=== PATIENT | female | born 1980 | race Caucasian/White ===

== ENCOUNTER 2021-10-23 09:24 | Outpatient (REF) | payer OTHER, SELFPAY ==
[2021-10-23 11:52] LABS: Hematocrit 45.6 % (37.0-47.0); Hemoglobin 15.2 g/dl (12.0-16.0); Mean Corpuscular HGB Conc 33.3 g/dl (31.0-35.0); Mean Corpuscular Hemoglobin 32.8 pg (27.0-33.0); Mean Corpuscular Volume 98.3 fL (80.0-98.0); Mean Platelet Volume 10.5 fL (9.4-12.3); Platelet Count 217 X10*3/uL (160-400); Red Blood Count 4.64 X10*6/uL (4.20-5.50); Red Cell Distribution Width 12.6 % (11.0-16.0)
[2021-10-23 12:24] LABS: Alanine Aminotransferase 45 U/L (0-31); Albumin Level 4.1 g/dL (3.5-5.0); Alkaline Phosphatase 64 U/L (39-117); Anion Gap 12 (12-20); Aspartate Amino Transferase 22 U/L (5-31); Bilirubin Total 0.5 mg/dL (0.0-1.0); Blood Urea Nitrogen 17 mg/dL (9-16); Calcium 9.2 mg/dL (8.4-10.2); Carbon Dioxide 23 mmol/L (22-29); Chloride 107 mmol/L (96-108); Cholesterol 200 mg/dL; Estimated Glomerular Filt Rate > 60; Glucose Fasting 81 mg/dL (60-99); HDL Cholesterol 67 mg/dL; LDL Cholesterol Calculated 111 mg/dl; Potassium 4.1 mmol/L (3.3-5.1); Rheumatoid Factor < 15.0 IU/mL (<15.0); Sodium 138 mmol/L (135-145); Total Protein 6.9 g/dL (6.5-8.0); Triglycerides 112 mg/dL
[2021-10-23 12:25] LABS: TSH reflex Free T4 2.05 uIU/mL (0.32-4.0)
[2021-10-26 11:42] LABS: Anti Nuclear Antibody Screen NEGATIVE (NEGATIVE)
[2021-10-26 15:55] LABS: Cyclic Citrullinated Peptide <16 UNITS
== END 2021-10-23 09:25 | disposition home or self-care (01) ==
LOC: HO.HMGCLDS 09:24
PROVIDERS: PCP Internal Medicine; Visit Provider Internal Medicine
DX: Z00.00 Encounter for general adult medical examination without abnormal findings (principal)
CPT/HCPCS: 36415; 80053; 80061; 84443; 85027; 86038; 86039; 86200; 86431

== ENCOUNTER 2021-11-03 14:35 | Outpatient (REF) | payer OTHER, SELFPAY | END 2021-11-03 14:36 | disposition home or self-care (01) | LOC: HO.LAB 14:35 | PROVIDERS: PCP Internal Medicine; Visit Provider Internal Medicine | DX: Z20.822 Contact with and (suspected) exposure to COVID-19 (principal) | CPT/HCPCS: C9803; U0003; U0005 ==

== ENCOUNTER 2023-03-28 08:52 | Outpatient (REF) | payer OTHER, SELFPAY ==
[2023-03-28 11:22] LABS: MANUAL DIFF FLAG NO
[2023-03-28 11:36] LABS: Basophils Percent Auto 0.6 % (0-2); Eosinophils Absolute Auto 0.1 X10*3/uL (0.0-0.4); Eosinophils Percent Auto 0.9 % (0-4); Hematocrit 43.7 % (37.0-47.0); Hemoglobin 14.7 g/dl (12.0-16.0); Imm Gran Abs Auto 0.02 X10*3/uL (0.00-0.03); Imm Gran Pct Auto 0.4 % (0.0-0.4); Lymphocytes Absolute Auto 1.2 X10*3/uL (1.2-4.9); Lymphocytes Percent Auto 23.3 % (20-40); Mean Corpuscular HGB Conc 33.6 g/dl (31.0-35.0); Mean Corpuscular Hemoglobin 32.7 pg (27.0-33.0); Mean Corpuscular Volume 97.1 fL (80.0-98.0); Mean Platelet Volume 10.6 fL (9.4-12.3); Monocytes Absolute Auto 0.4 X10*3/uL (0.1-1.2); Monocytes Percent Auto 8.3 % (2-11); Neutrophils Absolute Auto 3.5 x10*3/uL (2.0-8.3); Neutrophils Percent Auto 66.5 % (45-73); Platelet Count 200 X10*3/uL (160-400); Red Cell Distribution Width 12.7 % (11.0-16.0); White Blood Count 5.3 X10*3/uL (4.8-10.8)
[2023-03-28 11:54] LABS: Alanine Aminotransferase 33 U/L (0-31); Alkaline Phosphatase 63 U/L (39-117); Anion Gap 11 (12-20); Aspartate Amino Transferase 28 U/L (5-31); Bilirubin Total 0.6 mg/dL (0.0-1.0); Blood Urea Nitrogen 15 mg/dL (9-16); Calcium 8.7 mg/dL (8.4-10.2); Carbon Dioxide 24 mmol/L (22-29); Chloride 106 mmol/L (96-108); Cholesterol 184 mg/dL; Estimated Glomerular Filt Rate > 60; Glucose Fasting 83 mg/dL (60-99); HDL Cholesterol 65 mg/dL; LDL Cholesterol Calculated 106 mg/dl; Potassium 4.3 mmol/L (3.3-5.1); Sodium 137 mmol/L (135-145); Total Protein 6.7 g/dL (6.5-8.0); Triglycerides 67 mg/dL
[2023-03-28 12:14] LABS: TSH reflex Free T4 0.55 uIU/mL (0.32-4.0)
[2023-03-31 00:34] LABS: TS Negative Control Passed; TS Panel A 3; TS Panel B 0; TS Positive Control Passed; TSpotTB Negative (Negative)
== END 2023-03-28 08:53 | disposition home or self-care (01) ==
LOC: HO.HMGCLDS 08:52
PROVIDERS: PCP Internal Medicine; Visit Provider Internal Medicine
DX: Z00.00 Encounter for general adult medical examination without abnormal findings (principal); Z11.1 Encounter for screening for respiratory tuberculosis
CPT/HCPCS: 36415; 80053; 80061; 84443; 85025; 86481

== ENCOUNTER 2023-09-14 11:56 | Emergency (ER) | payer OTHER, SELFPAY ==
--- NOTE | ~2023-09-14 | XR_ITS ---
EXAMINATION: XR ANKLE, LEFT CLINICAL INFORMATION: Fall COMPARISON: None available. TECHNIQUE: AP, lateral, and mortise views of the left ankle. FINDINGS: Fractures of the distal fibula. One is occurring approximately 2 cm above the plafond and also another oblique fracture occurring 9 mm above the plafond. Some distraction of the fracture fragments. There is some widening of the medial mortise. Minimal bony irregularity in the lateral image involving the posterior tibia. Fracture cannot be excluded here. Soft tissue swelling seen laterally. XR/XR ankle LT min 3V IMPRESSION: Multiple Fractures of the distal tibia as described. There is widening the medial mortise here. Also some mild irregularity in the posterior aspect of the tibia the tibiotalar articulation could indicate fracture here.
[2023-09-14 12:06] VITALS: BP 160/103; PULSE 96; RESP 18; TEMP 36.8; O2SAT 97; BMI 33.3
--- NOTE | 2023-09-14 12:06 | ED.LOWEXIN ---
HPI - Extremity Injury (Lower) General Chief Complaint: Extremity Injury, Lower Stated Complaint: L ankle injury Time Seen by Provider: 09/14/23 16:43 Source: patient Mode of arrival: ambulatory Limitations: no limitations History of Present Illness HPI Narrative: 42-year-old female presents with complaints of left ankle pain status post rolling her ankle when she slipped on mud yesterday night, patient reports she fell afterwards however did not hit her head or lose consciousness. Did not sustain any other injuries, she states she is just experiencing pain, swelling and bruising to left ankle, cannot bear weight on it. Denies numbness and tingling, fevers, chills, headache, vision changes, chest pain, shortness of breath, nausea, vomiting and abdominal pain. Not on thinneres Related Data Previous Rx's Medication Instructions Recorded nicotine 21 mg/24 hr daily 1 patch transdermal DAILY #28 ea 07/28/21 transdermal patch trazodone 50 mg tablet 50 mg PO BEDTIME #30 tabs 06/16/23 ketorolac 10 mg tablet 10 mg PO TID PRN pain 5 days #15 09/14/23 tabs morphine 15 mg immediate release 15 mg PO Q6H PRN pain 5 days #10 09/14/23 tablet tabs Allergies Allergy/AdvReac Type Severity Reaction Status Date / Time No Known Allergies Allergy Verified 09/14/23 12:06 Review of Systems Review of Systems: Constitutional : No Weight loss, No Fever, No Chills, No Fatigue, No Malaise ENT/Mouth : No sore throat, No Rhinorrhea Eyes: No Eye Pain, No Swelling, No Redness Cardiovascular : No Chest Pain, No SOB, No Dyspnea on Exertion, No Orthopnea, No Edema, No Palpitations Respiratory : No Cough, No Sputum, No Wheezing Gastrointestinal : No Nausea, No Vomiting, No Diarrhea, No Constipation, No abdominal Pain, No Hematochezia, No Melena Genitourinary : No Dysuria, No Urinary Frequency, No Hematuria, Musculoskeletal : No joint pain, No Myalgias, No Joint Swelling Skin : No Skin Lesions, No rash Neuro : No Weakness, No Numbness, No Dizziness, No Headache Psych : No Anxiety/Panic, No Depression All other systems reviewed and are negative Yes all other systems are reviewed and are negative PMFSH Past Medical History Attestation statement: The following information was validated with the patient. Source: old records reviewed and nursing notes reviewed Medical History Annual physical exam Normal Pap smear Surgical History H/O bilateral breast reduction surgery Family History Family History Father Hypertension Diabetes Mental health disorder Substance use disorder Mother Hypertension Mental health disorder Maternal Grandmother Breast cancer Paternal Grandmother Colon cancer Social History Social History (Updated 03/21/23 @ 11:12 by Agustina Hansen MD) Household Members Other:: 1/2 PPD, 15 yr disable, daughter, 19 yr son Housing: Apartment Unable to assess alcohol history related to: Unable to respond Alcohol intake: unknown Patient Tobacco Use Status: Current everyday Tobacco user Tobacco use type: Cigarette Cigarettes Per Day: 10 Smoked in Last 30 Days: No e-Cigarette/Vaping Use: Never Used Use of substances other than those prescribed or required for medical reasons: Unknown Advance Directives: No Advance Directives Information Provided: No Patient : No Current occupational status: unemployed Cognitive needs: No Hearing needs: No Vision needs: Yes Physical Exam Vital Signs: Vital Signs: Last Vital Signs Temp 98.8 F 09/14/23 16:42 Pulse 88 09/14/23 16:42 Resp 18 09/14/23 16:42 BP 137/85 09/14/23 16:42 Pulse Ox 97 09/14/23 12:06 O2 Del Method Room Air 09/14/23 16:42 BMI result Body Mass Index 33.3 vss Appearance: Alert.? Oriented X3.? No acute distress.? Head: Normocephalic, atraumatic, no step-offs or deformities Eyes: Pupils equal, round and reactive to light.? ENT: Pharynx normal.? Neck: Normal inspection.? Neck supple.? CVS: Normal heart rate and rhythm.? Pulses normal.? Respiratory: No respiratory distress.? Breath sounds normal.? Abdomen: Soft and nontender.? Skin: Skin warm and dry.? Normal skin color.? Normal skin turgor.? Extremities: No lower extremity edema.? No calf ttp. 5/5 strength to bilateral upper and lower extremities + unable to assess range of motion to left ankle secondary to significant pain, there is edema and ecchymosis overlying the left ankle to the medial lateral aspect, tenderness to palpation to medial, lateral malleolus into the anterior ankle, normal sensation distally able to wiggle her toes, 2+ dorsalis pedis, anterior tibialis and posterior tibialis pulses equal bilateral. Back: No midline tenderness, no C-spine tenderness, full range of motion, no CVA tenderness bilaterally Neuro: Oriented X 3.? No motor deficit.? No sensory deficit. CN 2-12 intact Course Course Course Narrative: RME - 42 yo female presents to the ER for evaluation of left ankle pain, bruising and swelling after she slipped on mud last night and fell. Unable to bear weight today. Plan: x-ray ankle Reevaluation(s) Reevaluation #1: X-ray showing multiple fractures of the distal fibula although impression states to be I did speak to [facility] to correct this. There is widening of the medial mortise, will place patient in a posterior short and a stirrup will give crutches and tell her not to bear weight on this extremity will have her follow-up with the orthopedic team as soon as possible with discharge home with Toradol, morphine. After application of splint intact neurovascular status, capillary refill less than 2 seconds to all lower extremity digits. Educated patient on diagnosis and treatment plan, answered all question, patient verbalizes understanding. At this time patient will be discharged home, advised to return with new or worsening symptoms. Educated on worrisome signs and symptoms and when to return. At this time I feel comfortable discharge home. Time: 17:16 Medications Administered Discontinued Medications Generic Name Dose Route Start Last Admin Trade Name Marybeth PRN Reason Stop Dose Admin Ketorolac Tromethamine 30 mg 09/14/23 16:44 09/14/23 16:54 Ketorolac Tromethamine 30 Mg/Ml Vial IM 09/14/23 16:45 30 mg ONCE ONE Administration Morphine Sulfate 15 mg 09/14/23 16:44 09/14/23 16:54 Morphine Sulfate Immed Release 15 Mg Tablet PO 09/14/23 16:45 15 mg ONCE ONE Administration Medical Decision Making Medical Decision Making [facility] Narrative: 42-year-old female presents with left ankle pain status post slipping in mud Physical exam significant for unable to assess range of motion to left ankle secondary to significant pain, there is edema and ecchymosis overlying the left ankle to the medial lateral aspect, tenderness to palpation to medial, lateral malleolus into the anterior ankle, normal sensation distally able to wiggle her toes, 2+ dorsalis pedis, anterior tibialis and posterior tibialis pulses equal bilateral. Concerns for fracture, dislocation with possible ligament or tendon injury. Unlikely sprain or strain, unlikely neurovascular compromise or threat to Jason, no signs of compartment syndrome. No signs of traumatic injury to head, neck, chest, abdomen or pelvis. No signs of arterial or venous occlusion. Plan imaging and pain control Differential Diagnosis Differential Diagnoses: The differential diagnosis associated with the presentation includes Concerns for fracture, dislocation with possible ligament or tendon injury. Unlikely sprain or strain, unlikely neurovascular compromise or threat to Jason, no signs of compartment syndrome. No signs of traumatic injury to head, neck, chest, abdomen or pelvis. No signs of arterial or venous occlusion. Admission/Observation Consideration of admission/observation: Escalation of care including admission/observation considered Independent Interpretation I performed an independent interpretation of an: Plain X-Ray ( XR/XR ankle LT min 3V IMPRESSION: Multiple Fractures of the distal tibia as described. There is widening the medial mortise here. Also some mild irregularity in the posterior aspect of the tibia the tibiotalar articulation could indicate fracture here.) Radiology Impression Discussion of test interpretation with radiology: I have reviewed the radiologist's reading. Prescription Management I considered prescription management with: Pain Medication (Narcotic, safe narcotic use was reviewed with patient will also send Toradol) Discharge Plan Discharge Clinical Impression: Ankle fracture Patient Disposition: Home, Self-Care Instructions: Ankle Fracture (ED) Additional Instructions: Take your medications as prescribed. If you were prescribed antibiotics today, it is important that you take your medication to their entirety, do not skip any doses, do not finish them early. Follow-up with your primary care provider this week. Return to the emergency department with new or worsening symptoms. Such as fevers, chills, chest pain, shortness of breath, nausea, vomiting, dizziness, headache, vision changes, lethargy In case of emergency call 911 Toradol has been sent to your pharmacy, you tolerated this well in the department. Please take this as prescribed do not take this with ibuprofen, or other NSAIDs, do not mix this with alcohol. Side effects of this medication including increased risk for bleeding and possible kidney injury. A narcotic has been sent to your pharmacy please take this as prescribed. Do not take more than the prescribed dose. Narcotic medications can cause addiction. Please do not mix them with alcohol. Do not take them while driving or operating machinery. Do not take them with any other narcotics. Do not share them with friends or family. They can cause constipation. Take them only for severe pain. XR/XR ankle LT min 3V IMPRESSION: Multiple Fractures of the distal fibula as described. There is widening the medial mortise here. Also some mild irregularity in the posterior aspect of the tibia the tibiotalar articulation could indicate fracture here. Feel better Prescriptions: New ketorolac 10 mg tablet 10 mg PO TID PRN (Reason: pain) 5 Days Qty: 15 0RF morphine 15 mg tablet 15 mg PO Q6H PRN (Reason: pain) 5 Days Qty: 10 0RF Rx Instructions: Partial Fill upon patient request. No Action trazodone 50 mg tablet 50 mg PO BEDTIME Qty: 30 2RF nicotine 21 mg/24 hr patch 24 hour 1 patch transdermal DAILY Qty: 28 6RF Referrals: Agustina Hansen MD [Primary Care Provider] - 2 days [facility] [Provider Group] - 2 days Stand Alone Forms: Work/School Release
[2023-09-14 16:42] VITALS: BP 137/85; PULSE 88; RESP 18; TEMP 37.1
[2023-09-14] MEDS: Ketorolac Tromethamine 30 MG/ML VIAL IM (16:54)
[2023-09-14] MEDS: Morphine Sulfate Immed Release 15 MG TABLET PO (16:54)
--- NOTE | 2023-09-14 17:17 | MHC.EDTECH ---
Splint apply to Patient left leg ,Provider Ollie check splint application ,Crutches given .
== END 2023-09-14 17:45 | disposition home or self-care (01) ==
PROVIDERS: Emergency Provider Student in an Organized Health Care Education/Training Program; PCP Internal Medicine
DX: S82.892A Other fracture of left lower leg, initial encounter for closed fracture (principal); W01.0XXA Fall on same level from slipping, tripping and stumbling without subsequent striking against object, initial encounter; F17.210 Nicotine dependence, cigarettes, uncomplicated; Y93.9 Activity, unspecified; Y92.89 Other specified places as the place of occurrence of the external cause; Y99.9 Unspecified external cause status
CPT/HCPCS: 29515; 73610; 96372; 99284; J1885

== ENCOUNTER 2023-09-20 11:10 | Outpatient (AMB) | payer OTHER, SELFPAY ==
--- NOTE | 2023-09-20 11:20 | MHC.OFFVIS ---
Intake Vital Signs 09/20/23 11:22 Height 5 ft 5 in Weight 200 lb BMI 33.3 Intake Visit Reasons: Fc- left Ankle fracture Intake Note: Winter is a 42 year old female who presets today in a splint for a evaluation for her left ankle fx, DOI 09/13/23. Patient reports she slipped on mud and she fell. She states that she is in a lot of pain with spasms that cause her a lot of discomfort. Having numbness under the toes and near the ankle with a burning sensation as well. Allergies No Known Allergies Allergy (Verified 09/20/23 11:22) HPI Fc- left Ankle fracture HPI Details 42-year-old female who presents in the office today, as a new patient, for an evaluation of left ankle pain. The patient presented to the ED on 09/14/2023 status post slipping in the mud causing her to twist her ankle, which occurred on 09/13/2023. X-rays of the left ankle were obtained. She was placed in a posterior short and stirrup splint and referred to orthopedics. While in the office today she reports being in a lot of pain with spams that cause her a lot of discomfort. She confirms numbness under the toes and near the ankle with a burning sensation. Patient has no known allergy history. Patient is currently taking, as follows: -Ketorolac 10 mg PO TID PRN -Morphine 15 mg PO Q6H PRN -Nicotine 1 patch transdermal daily -Trazodone 50 mg PO bedtime. Patient has no known medical history. Patient has a surgical history, as follows: -H/O bilateral breast reduction surgery; 2008 Patient has a social history, as follows: -Tobacco use. [facility] Medical History (Updated 09/20/23 @ 11:56 by Jessica Hawkins) Annual physical exam Normal Pap smear Surgical History H/O bilateral breast reduction surgery Family History Father Hypertension Diabetes Mental health disorder Substance use disorder Mother Hypertension Mental health disorder Maternal Grandmother Breast cancer Paternal Grandmother Colon cancer Social History Household Members Other:: 1/2 PPD, 15 yr disable, daughter, 19 yr son Housing: Apartment Unable to assess alcohol history related to: Unable to respond Alcohol intake: unknown Patient Tobacco Use Status: Current everyday Tobacco user Tobacco use type: Cigarette Cigarettes Per Day: 10 e-Cigarette/Vaping Use: Never Used Current occupational status: unemployed Cognitive needs: No Hearing needs: No Vision needs: Yes Review of Systems Const All systems reviewed & are unremarkable except as noted in HPI and below Physical Exam Vital Signs: BMI result Body Mass Index 33.3 Const General: cooperative and no acute distress Orientation/consciousness: patient oriented x3 Resp Effort & Inspection: normal respiratory effort and able to speak in complete sentences Cardio Peripheral pulses: Peripheral pulses 2+ throughout Skin General skin exam: no rashes or lesions noted Neuro General: patient oriented x3 Extrem Other: Left ankle: Circumferential edema. No skin disruption. Ecchymosis along the lateral aspect of the left ankle. Sensation intact. Pedal pulse intact. Office Procedures Casting/Splints [id number] Leg splint application Procedure code (CPT) selection complete Assessment & Plan Assessment & Plan (1) Fracture of distal end of left tibia: Comment: 1. Multiple Fractures of the distal tibia as described. There is widening the medial mortise here. 2. Also some mild irregularity in the posterior aspect of the tibia the tibiotalar articulation could indicate fracture here. Code(s): S82.302A - Unspecified fracture of lower end of left tibia, initial encounter for closed fracture Qualifiers: Encounter type: initial encounter Fracture morphology: unspecified fracture morphology Fracture type: closed Qualified Code(s): S82.302A - Unspecified fracture of lower end of left tibia, initial encounter for closed fracture Plan Ms. Prabhakar is a 42-year-old female who presents in the office today, as a new patient, for an evaluation of left ankle pain. The patient presented to the ED on 09/14/2023 status post slipping in the mud causing her to twist her ankle, which occurred on 09/13/2023. X-rays of the left ankle were obtained. She was placed in a posterior short and stirrup splint and referred to orthopedics. While in the office today she reports being in a lot of pain with spams that cause her a lot of discomfort. She confirms numbness under the toes and near the ankle with a burning sensation. Patient has no known allergy history. Patient is currently taking, as follows: -Ketorolac 10 mg PO TID PRN -Morphine 15 mg PO Q6H PRN -Nicotine 1 patch transdermal daily -Trazodone 50 mg PO bedtime. Patient has no known medical history. Patient has a surgical history, as follows: -H/O bilateral breast reduction surgery; 2008 Patient has a social history, as follows: -Tobacco use. I discussed in detail the procedure and what to expect pre and post operatively. We discussed the risks, benefits and alternatives to the surgery as well as the rehabilitation course. The risks; which include, but are not limited to infection, bleeding, nerve injury, ongoing pain, swelling, and stiffness, perioperative risk of injury to bones and soft tissues, and blood clots. I have answered all questions and with their understanding they have consented to move forward with a left ankle ORIF to be performed on 09/23/[address] Chau. The patient was placed in a new custom made posterior possibly with a stirrup splint while in the office today. She was instructed to elevate and ice the ankle as much as possible. She has a scooter, walker, and crutches to aid in ambulation. She is to remain non-weight bearing. Follow up will be at the post operative appointment, or sooner if needed. X-rays of the left ankle, obtained on 09/14/2023, revealed: 1. Multiple Fractures of the distal tibia as described. There is widening the medial mortise here. 2. Also some mild irregularity in the posterior aspect of the tibia the tibiotalar articulation could indicate fracture here. Patient Instructions: Scribed for Ana Ling PA-C by Jessica Hawkins medical lead, on 09/20/2023 at 11:14 am, EST. Coding Level of Care Code New Pt Level 4 (37536) Diagnoses Closed fracture of distal end of left tibia, unspecified fracture morphology, initial encounter S82.302A Encounter type: initial encounter Fracture morphology: unspecified fracture morphology Fracture type: closed CPT Codes Splint - CPT: 52142-[id number] Leg splint application ([id number])
[2023-09-20 11:22] VITALS: BMI 33.3
== END 2023-09-20 12:06 | disposition home or self-care (01) ==
PROVIDERS: PCP Internal Medicine; Visit Provider Physician Assistant
DX: S82.302A Unspecified fracture of lower end of left tibia, initial encounter for closed fracture (principal)
CPT/HCPCS: 27750; 99204

== ENCOUNTER → 2023-09-20 11:10 | Outpatient (BNVA) | payer OTHER, SELFPAY | PROVIDERS: PCP Internal Medicine; Visit Provider Physician Assistant | DX: S82.302A Unspecified fracture of lower end of left tibia, initial encounter for closed fracture (principal); W01.0XXA Fall on same level from slipping, tripping and stumbling without subsequent striking against object, initial encounter; Y93.01 Activity, walking, marching and hiking; Y92.9 Unspecified place or not applicable; Y99.8 Other external cause status | CPT/HCPCS: 99202 ==

== ENCOUNTER 2023-09-23 12:14 | Day surgery (SDC) | payer OTHER, SELFPAY ==
--- NOTE | 2023-09-22 09:54 | P.CONAN_ITS ---
Documented by User: Apurva Wright NP 09/22/23 09:56 HPI - Anesthesia Eval Consult details Narrative: 42yo F for Left Ankle Fracture ORIF [facility] Active Problems Active Problems: All Active Problems (Updated 09/20/23 @ 11:56 by Jessica Hawkins) Fracture of distal end of left tibia (Acute) Tobacco use (Acute) Annual physical exam (Acute) Normal Pap smear (Acute) Past Medical History Medical History (Updated 09/20/23 @ 11:56 by Jessica Hawkins) Annual physical exam Normal Pap smear Family History Family History Father Hypertension Diabetes Mental health disorder Substance use disorder Mother Hypertension Mental health disorder Maternal Grandmother Breast cancer Paternal Grandmother Colon cancer Surgical History Surgical History H/O bilateral breast reduction surgery Social History Social History Household Members Other:: 1/2 PPD, 15 yr disable, daughter, 19 yr son Housing: Apartment Unable to assess alcohol history related to: Unable to respond Alcohol intake: unknown Patient Tobacco Use Status: Current everyday Tobacco user Tobacco use type: Cigarette Cigarettes Per Day: 10 e-Cigarette/Vaping Use: Never Used Current occupational status: unemployed Cognitive needs: No Hearing needs: No Vision needs: Yes Meds Allergies Allergy/AdvReac Type Severity Reaction Status Date / Time No Known Allergies Allergy Verified 09/20/23 11:22 Exam Exam Date and Time: September 22, 2023 0954 Pertinent Lab Results Pertinent Lab Results: Laboratory Tests 03/28/23 08:57 WBC 5.3 Hgb 14.7 Hct 43.7 Plt Count 200 Sodium 137 Potassium 4.3 Chloride 106 Carbon Dioxide 24 BUN 15 Creatinine 0.82 Assessment and Plan Assessment Anesthesia Assessment: Chart Reviewed Documented by User: Vance Lucero MD 09/23/23 10:37 [facility] Past Medical History Medical History (Updated 09/20/23 @ 11:56 by Jessica Hawkins) Annual physical exam Normal Pap smear Family History Family History Father Hypertension Diabetes Mental health disorder Substance use disorder Mother Hypertension Mental health disorder Maternal Grandmother Breast cancer Paternal Grandmother Colon cancer Family history of problems with anesthesia: No Surgical History Surgical History H/O bilateral breast reduction surgery History of Problems with Anesthesia: No Social History Social History Household Members Other:: 1/2 PPD, 15 yr disable, daughter, 19 yr son Housing: Apartment Unable to assess alcohol history related to: Unable to respond Alcohol intake: unknown Patient Tobacco Use Status: Current everyday Tobacco user Tobacco use type: Cigarette Cigarettes Per Day: 10 e-Cigarette/Vaping Use: Never Used Current occupational status: unemployed Cognitive needs: No Hearing needs: No Vision needs: Yes Meds Allergies Allergy/AdvReac Type Severity Reaction Status Date / Time No Known Allergies Allergy Verified 09/20/23 11:22 Exam Airway Mallampati Class: II TM Dist: >3cm Neck ROM: Full Heart: rrr5 Lungs: cta Assessment and Plan Assessment Anesthesia Assessment: Anesthesia Plan Discussed Final Anesthetic Review Family History of Problems with Anesthesia: No History of Problems with Anesthesia: No NPO: Yes ASA Class: II Final Preanesthetic Review: No Changes in Pt Med Stat, Meds/Allgs Chart Reviewed, Consent Obtained/Reviewed and Anes Risks/Benef Reviewed Patient Risk: Intermediate Procedure Risk: Intermediate Anesthetic Plan Anesthetic Plan: GA, Regional Block and Agree w/ Assess. and Plan Disposition: Standard PACU
[2023-09-23] VITALS (10 sets, daily range): BP systolic 144–168; BP diastolic 68–105; PULSE 78–105; RESP 13–20; TEMP 36.7–36.8; O2SAT 96–98; BMI 33.3
--- NOTE | ~2023-09-23 | FL_ITS ---
EXAMINATION: XR FLUOROSCOPY WITH IMAGES CLINICAL INFORMATION: Ankle ORIF. COMPARISON: Ankle x-ray 09/14/2023 TECHNIQUE: Fluoroscopy Supervised By: Dr. Oscar Chau. Fluoroscopy Time: 0.3 minutes. Cumulative Dose: 1.19 mGy. DAP: 0.0208 Gycm2. Images: 4. FINDINGS: Images demonstrate plate and screws transfixing the distal fibular shaft fracture with improved alignment. FL/FL guidance in OR IMPRESSION: ORIF of distal fibular shaft fracture.
[2023-09-23] MEDS: Lactated Ringers 1,000 ML 100 ML IVCONT (12:42)
[2023-09-23 12:44] LABS: UPreg QC Valid YES; Urine Pregnancy NEGATIVE (NEGATIVE)
--- NOTE | 2023-09-23 13:11 | PC.NURSE ---
dr. encinas aware of bp results. educated patient.
[2023-09-23] MEDS: oxyCODONE HCl Immed Release 5 MG TABLET PO (15:27)
[2023-09-23] MEDS: fentaNYL citrate/PF 100 MCG/2 ML VIAL 25 MCG IVPUSH ×2 (15:29→15:35)
--- NOTE | 2023-09-23 16:31 | PC.NURSE ---
Pt dressed and ready for discharge. Still awaiting orders. Meal tray ordered, pts family updated. Both orthopedic PAs messaged at [phone] requesting dc orders.
--- NOTE | 2023-09-23 17:39 | PC.NURSE ---
Unable to print patient's discharge orders. Orders transcribed from computer record. Pt verbalizes understanding
--- NOTE | 2023-09-23 17:41 | PC.NURSE ---
Pt states has crutches, walker, and scooter at home already
--- NOTE | 2023-09-23 17:51 | P.BOP_ITS ---
Brief Operative Note Date of Service: 09/23/23 Pre-op diagnosis: Left fibula fracture Post-op diagnosis: same Procedure: ORIF left fibula Surgeon: Oscar Chau MD Anesthesia: GETA Was an Java Security [employer] used for this Procedure?: No Estimated blood loss (mL): 20 Tourniquet time (min): 45 IV fluids (mL): 800 Pathology: none sent Condition: stable Disposition: PACU
--- NOTE | 2023-09-24 10:40 | HO.POSTANES ---
Post Anesthesia Evaluation Post Anesthesia Evaluation Date of Service: 09/24/23 Anesthesia: General Mental Status: Awake Nausea/Vomiting: None Hydration: Adequate Anesthesia-Related Issues: No Anes. Related Issues
--- NOTE | 2023-09-28 10:58 | W.PM.OPN ---
Operative Note Operative Note Date of Service: 09/23/23 Narrative: Date of Service: 09/23/23 Pre-op diagnosis: Left fibula fracture Post-op diagnosis: same Procedure: ORIF left fibula Surgeon: Oscar Chau MD Anesthesia: GETA Was an Apple Peeler Operator used for this Procedure?: No Estimated blood loss (mL): 20 Tourniquet time (min): 45 IV fluids (mL): 800 Pathology: none sent Condition: stable Disposition: PACU Procedure in detail: Patient was brought to the operating room and placed supine on the operative table. All bony prominences were well padded and a time-out was called to identify proper site proper procedure proper surgeon. IV antibiotics per weight were administered. I began by exsanguinating limb is slightly tourniquet to 300 mm Hg. I then made a standard posterolateral incision over the fibula. Full-thickness flaps were taken down to the fibular shaft and distal fibula. The fracture was identified and cleaned with a combination of curette, rongeur and irrigation. A lobster claw was used to provisionally reduce the fracture. This was a high fibula fracture. A straight compresion plate wasselected and applied using biplanar fluoro and standard AO technique. Biplanar fluoroscopy was used to confirm hardware position and fracture reduction. Once I was satisfied that both of these were acceptable I irrigated copiously. This syndesmosis was tested using external rotation test and the cotton test and was found to be stable. Therefore all instrumentation was removed and copious irrigation was performed. Absorbable suture and tara were used for closure and the patient was placed into sterile dressings and a well-padded posterior splint. Tourniquet was let down and the patient was extubated brought to recovery room in stable condition there were no known complications.
== END 2023-09-23 17:29 | disposition home or self-care (01) ==
PROVIDERS: Nurse Practitioner; PCP Internal Medicine; Visit Provider Orthopaedic Surgery
PROC: (CPT 27792; principal; 2023-09-23 13:30)
DX: S82.832A Other fracture of upper and lower end of left fibula, initial encounter for closed fracture (principal); W01.0XXA Fall on same level from slipping, tripping and stumbling without subsequent striking against object, initial encounter; Y93.89 Activity, other specified; Y92.9 Unspecified place or not applicable; Y99.8 Other external cause status; Z98.890 Other specified postprocedural states; F17.210 Nicotine dependence, cigarettes, uncomplicated
CPT/HCPCS: 27792; 81025; C1713; J0690; J1100; J1170; J2405; J2704; J2795; J3010

== ENCOUNTER → 2023-09-23 12:14 | Outpatient (BNV) | payer OTHER, SELFPAY | PROVIDERS: PCP Internal Medicine; Visit Provider Orthopaedic Surgery | DX: S82.62XA Displaced fracture of lateral malleolus of left fibula, initial encounter for closed fracture (principal) | CPT/HCPCS: 27792 ==

== ENCOUNTER 2023-09-30 10:31 | Outpatient (AMB) | payer OTHER, SELFPAY ==
--- NOTE | 2023-09-30 10:35 | MHC.OFFVIS ---
Intake Intake Visit Reasons: PO-Lt Ankle ORIF 09/23 NE Intake Note: Winter is a 42 year old female who presents today for a post op appointment s/p Lt Ankle ORIF 09/23 NE. Allergies No Known Allergies Allergy (Verified 09/30/23 10:35) HPI PO-Lt Ankle ORIF 09/23 NE HPI Details 42-year-old female who presents in the office today 1 week status post left fibula ORIF, which was performed on 09/23/[address] Chau. [facility] Medical History Annual physical exam Normal Pap smear Surgical History H/O bilateral breast reduction surgery Family History Father Hypertension Diabetes Mental health disorder Substance use disorder Mother Hypertension Mental health disorder Maternal Grandmother Breast cancer Paternal Grandmother Colon cancer Social History Household Members Other:: 1/2 PPD, 15 yr disable, daughter, 19 yr son Housing: Apartment Unable to assess alcohol history related to: Unable to respond Alcohol intake: unknown Patient Tobacco Use Status: Current everyday Tobacco user Tobacco use type: Cigarette Cigarettes Per Day: 10 e-Cigarette/Vaping Use: Never Used Current occupational status: unemployed Cognitive needs: No Hearing needs: No Vision needs: Yes Review of Systems Const All systems reviewed & are unremarkable except as noted in HPI and below Physical Exam Const General: cooperative, healthy appearing and no acute distress Resp Effort & Inspection: normal respiratory effort and able to speak in complete sentences Cardio Rate: regular rate Peripheral pulses: Peripheral pulses 2+ throughout GI Palpation (GI): Soft to palpation Skin Lesions: no lesions Rashes: no rashes Extrem Other: Left lower extremity: Incision site is clean, dry, and intact. Marleen intact. Surrounding edema and ecchymosis. Able to slightly dorsiflex and plantarflex. Sensation intact. Pedal pulse intact. Office Procedures Casting/Splints 14138-[id number] Leg splint application Procedure code (CPT) selection complete Assessment & Plan Assessment & Plan (1) Fracture of distal end of left tibia: Comment: 1. Multiple Fractures of the distal tibia as described. There is widening the medial mortise here. 2. Also some mild irregularity in the posterior aspect of the tibia the tibiotalar articulation could indicate fracture here. Code(s): S82.302A - Unspecified fracture of lower end of left tibia, initial encounter for closed fracture Qualifiers: Encounter type: initial encounter Fracture morphology: unspecified fracture morphology Fracture type: closed Qualified Code(s): S82.302A - Unspecified fracture of lower end of left tibia, initial encounter for closed fracture Plan Ms. Prabhakar is a 42-year-old female who presents in the office today 1 week status post left fibula ORIF, which was performed on 09/23/[address] Chau. The patient will be placed back in to the splint while in the office today. I would like to see her in 1 week for a wound check and anticipated staple removal. She is to remain non-weight bearing until 6 weeks. Follow up will be in 1 week for a wound check, or sooner if needed. Patient Instructions: Scribed for Ana Ling PA-C by Jessica Hawkins medical file clerk, on 09/30/2023 at 10:34 am, EST. Coding Level of Care Code Global (26351) Diagnoses Closed fracture of distal end of left tibia, unspecified fracture morphology, initial encounter S82.302A Encounter type: initial encounter Fracture morphology: unspecified fracture morphology Fracture type: closed CPT Codes Splint - CPT: 24228-Dfcts Leg splint application ([id number])
== END 2023-09-30 11:44 | disposition home or self-care (01) ==
PROVIDERS: PCP Internal Medicine; Visit Provider Physician Assistant
DX: S82.302A Unspecified fracture of lower end of left tibia, initial encounter for closed fracture (principal)
CPT/HCPCS: 29515; 99024

== ENCOUNTER → 2023-09-30 10:31 | Outpatient (BNVA) | payer OTHER, SELFPAY | PROVIDERS: PCP Internal Medicine; Visit Provider Physician Assistant | DX: S82.302D Unspecified fracture of lower end of left tibia, subsequent encounter for closed fracture with routine healing (principal) | CPT/HCPCS: 29515 ==

== ENCOUNTER 2023-10-10 10:37 | Outpatient (REF) | payer OTHER, SELFPAY | END 2023-10-10 10:38 | disposition home or self-care (01) | LOC: HO.HOSX 10:37 | PROVIDERS: Visit Provider Physician Assistant | DX: Z13.89 Encounter for screening for other disorder (principal) ==

== ENCOUNTER 2023-10-12 13:55 | Outpatient (AMB) | payer OTHER, SELFPAY ==
--- NOTE | 2023-10-12 13:58 | MHC.OFFVIS ---
Intake Intake Visit Reasons: PO-Lt Ankle ORIF 09/23 NE Intake Note: Winter a 43 year old female presents today for a post operative left ankle ORIF, DOS 09/23/23 NE. Patient reports that her current pain level is 8 out of 10. Allergies No Known Allergies Allergy (Verified 10/12/23 14:15) HPI PO-Lt Ankle ORIF 09/23 NE HPI Details 43-year-old female who returns to the office today for post-op left ankle ORIF, 09/23/[address] Chau. She reports she sustained a fall yesterday and currently experiences to have a lot of pain in her ankle. She rates the pain as 8 on the scale of 0-10. She has no other concerns today. [facility], [facility] Medical History (Updated 10/12/23 @ 14:37 by Leanne Corado PA-C) Annual physical exam Normal Pap smear Surgical History H/O bilateral breast reduction surgery Family History Father Hypertension Diabetes Mental health disorder Substance use disorder Mother Hypertension Mental health disorder Maternal Grandmother Breast cancer Paternal Grandmother Colon cancer Social History Household Members Other:: 1/2 PPD, 15 yr disable, daughter, 19 yr son Housing: Apartment Unable to assess alcohol history related to: Unable to respond Alcohol intake: unknown Comment: burning Patient Tobacco Use Status: Current everyday Tobacco user Tobacco use type: Cigarette Cigarettes Per Day: 10 e-Cigarette/Vaping Use: Never Used Current occupational status: unemployed Cognitive needs: No Hearing needs: No Vision needs: Yes Review of Systems Const All systems reviewed & are unremarkable except as noted in HPI and below Physical Exam Extrem Other: Left ankle: Normal to inspection. [place] are intact. No redness or drainage. NVI. Office Procedures Casting/Splints 63364-Wlufl Leg Cast Application Procedure code (CPT) selection complete Results Reviewed Results Reviewed: Xrays were obtained in the office today and personally reviewed by me of the left ankle show intact orthopedic hardware with ankle mortise intact. Assessment & Plan Assessment & Plan (1) Fracture of distal end of left tibia: Comment: 1. Multiple Fractures of the distal tibia as described. There is widening the medial mortise here. 2. Also some mild irregularity in the posterior aspect of the tibia the tibiotalar articulation could indicate fracture here. Code(s): S82.302A - Unspecified fracture of lower end of left tibia, initial encounter for closed fracture Qualifiers: Encounter type: subsequent encounter Fracture healing: with routine healing Fracture morphology: unspecified fracture morphology Fracture type: closed Qualified Code(s): S82.302D - Unspecified fracture of lower end of left tibia, subsequent encounter for closed fracture with routine healing Plan [place] removed today, steri strips applied. She was placed in a short leg cast. She will remain non weight bearing for 4 weeks at that point she will see us back with cast off and new x-rays, sooner if needed. Orders: Orders XR ankle LT min 3V Today M25.572 - Pain in left ankle and joints of left foot Patient Instructions: Scribed for Leanne Corado PA-C, by Hakan Lawson territory sales manager medical, on 10/12/2023 at 1:45 PM EST. I, Leanne Corado PA-C, have personally reviewed and agree with the information entered by the scribe. Coding Level of Care Code Global (15920) Diagnoses Closed fracture of distal end of left tibia with routine healing, unspecified fracture morphology, subsequent encounter S82.302D Encounter type: subsequent encounter Fracture healing: with routine healing Fracture morphology: unspecified fracture morphology Fracture type: closed CPT Codes Casting - CPT: 83757-Srwrf Leg Cast Application ([id number])
== END 2023-10-12 14:50 | disposition home or self-care (01) ==
PROVIDERS: PCP Internal Medicine; Visit Provider Physician Assistant
DX: S82.302D Unspecified fracture of lower end of left tibia, subsequent encounter for closed fracture with routine healing (principal)
CPT/HCPCS: 29405; 99024

== ENCOUNTER 2023-10-12 13:55 | Outpatient (REF) | payer OTHER, SELFPAY ==
--- NOTE | ~2023-10-12 | XR_ITS ---
EXAMINATION: XR ANKLE, LEFT CLINICAL INFORMATION: Pain. COMPARISON: Prior examinations, including 09/14/2023. TECHNIQUE: AP, lateral, and mortise views of the left ankle. FINDINGS: Bony mineralization is normal. An intact orthopedic plate and fixator screws are applied to the distal left fibula, transfixing a complex fracture. There is good bony alignment. There are adjacent surgical skin tara. The ankle mortise appears intact. There is very mild degenerative change of the tibiotalar joint posteriorly. There is mild generalized soft tissue swelling. Boehler's angle is normal. No calcaneal spur is seen. No soft tissue gas or foreign body is noted. XR/XR ankle LT min 3V IMPRESSION: There is well-maintained alignment status-post ORIF of a distal left fibular fracture. No hardware failure or loosening is seen. Faint residual fracture lines are noted, and there is mild periosteal callus formation.
== END 2023-10-12 13:56 | disposition home or self-care (01) ==
LOC: HO.HOSX 13:55
PROVIDERS: PCP Internal Medicine; Visit Provider Physician Assistant
DX: S82.302D Unspecified fracture of lower end of left tibia, subsequent encounter for closed fracture with routine healing (principal)
CPT/HCPCS: 29405; 73610

== ENCOUNTER 2023-11-09 06:33 | Outpatient (REF) | payer OTHER, SELFPAY | END 2023-11-09 06:34 | disposition home or self-care (01) | LOC: HO.HOSX 06:33 | PROVIDERS: Visit Provider Physician Assistant | DX: Z13.89 Encounter for screening for other disorder (principal) ==

== ENCOUNTER 2023-11-11 10:17 | Outpatient (REF) | payer OTHER, SELFPAY | END 2023-11-11 10:18 | disposition home or self-care (01) | LOC: HO.HOSX 10:17 | PROVIDERS: Visit Provider Physician Assistant | DX: M25.572 Pain in left ankle and joints of left foot (principal); S82.302D Unspecified fracture of lower end of left tibia, subsequent encounter for closed fracture with routine healing; X58.XXXD Exposure to other specified factors, subsequent encounter; Z96.662 Presence of left artificial ankle joint; Z47.89 Encounter for other orthopedic aftercare | CPT/HCPCS: 73610; 99212 ==

== ENCOUNTER 2023-11-11 13:12 | Outpatient (AMB) | payer OTHER, SELFPAY ==
--- NOTE | 2023-11-11 13:34 | A.OFFVIS_ITS ---
Intake Intake Visit Reasons: PO-Lt Ankle ORIF 09/23/23 NE-cast off with xrays Intake Note: Winter a 43 year old female presents today for a post operative left ankle ORIF, DOS 09/23/23 NE. Cast off and xrays updated. Patient reports that she is finding it difficult trying to manage her pain, states pain becomes worse at night. Allergies No Known Allergies Allergy (Verified 11/11/23 13:35) HPI PO-Lt Ankle ORIF 09/23/23 NE-cast off with xrays HPI Details 43-year-old female who returns to the [facility] today for post-op left ankle ORIF, 09/23/[address] Chau. She continues to have pain in her left ankle which is aggravated at night. She is doing well otherwise and has no other concerns today. [facility] Medical History (Updated 10/12/23 @ 14:37 by Leanne Corado PA-C) Annual physical exam Normal Pap smear Surgical History H/O bilateral breast reduction surgery Family History Father Hypertension Diabetes Mental health disorder Substance use disorder Mother Hypertension Mental health disorder Maternal Grandmother Breast cancer Paternal Grandmother Colon cancer Social History Household Members Other:: 1/2 PPD, 15 yr disable, daughter, 19 yr son Housing: Apartment Unable to assess alcohol history related to: Unable to respond Alcohol intake: unknown Comment: burning Patient Tobacco Use Status: Current everyday Tobacco user Tobacco use type: Cigarette Cigarettes Per Day: 10 e-Cigarette/Vaping Use: Never Used Current occupational status: unemployed Cognitive needs: No Hearing needs: No Vision needs: Yes Review of Systems Const All systems reviewed & are unremarkable except as noted in HPI and below Physical Exam Extrem Other: Left ankle: Incision well healed. No erythema or swelling. She has mild tenderness over the soft tissues at the lateral aspect of ankle. She can initiate inversion and eversion. EHL is intact. NVI. Results Reviewed Results Reviewed: Xrays were obtained in the office today and personally reviewed by me of the left ankle show intact orthopedic hardware with ankle mortise intact. Assessment & Plan Assessment & Plan (1) Fracture of distal end of left tibia: Comment: 1. Multiple Fractures of the distal tibia as described. There is widening the medial mortise here. 2. Also some mild irregularity in the posterior aspect of the tibia the tibiotalar articulation could indicate fracture here. Code(s): S82.302A - Unspecified fracture of lower end of left tibia, initial encounter for closed fracture Qualifiers: Encounter type: subsequent encounter Fracture healing: with routine healing Fracture morphology: unspecified fracture morphology Fracture type: closed Qualified Code(s): S82.302D - Unspecified fracture of lower end of left tibia, subsequent encounter for closed fracture with routine healing Plan She was transitioned to a tall boot weight bearing as tolerated. She can remove the boot for hygiene and exercises. She was also given an order of physical therapy to work on ROM, gentle strengthening, proprioceptive training and heel quad stretching. She was also given a prescription of ibuprofen as well as oxycodone BID. 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 She will see me back in 6 weeks with new x- rays and she will remain out of work till her next appointment. Orders: Orders PT Evaluation and Treatment 11/11/23 S82.302A - Unspecified fracture of lower end of left tibia, initial encounter for closed fracture Medications: New ibuprofen 800 mg PO Q8H 30 days PRN 90 tabs 3RF pain S52.209D - Unspecified fracture of shaft of unspecified ulna, subsequent encounter for closed fracture with routine healing Changed From oxycodone Partial Fill upon patient request. 5 mg PO DAILY 7 days PRN 7 tabs 0RF pain To oxycodone Partial Fill upon patient request. 5 mg PO BID 7 days PRN 14 tabs 0RF pain Patient Instructions: Scribed for Leanne Corado PA-C, by Hakan Lawson emergency medical service coordinator, on 11/11/2023 at 1:15 PM EST. Leanne Horton PA-C, have personally reviewed and agree with the information entered by the scribe. Coding Level of Care Code Global (14756) Diagnoses Closed fracture of distal end of left tibia with routine healing, unspecified fracture morphology, subsequent encounter S82.302D Encounter type: subsequent encounter Fracture healing: with routine healing Fracture morphology: unspecified fracture morphology Fracture type: closed
== END 2023-11-11 14:17 | disposition home or self-care (01) ==
PROVIDERS: PCP Internal Medicine; Visit Provider Physician Assistant
DX: S82.302D Unspecified fracture of lower end of left tibia, subsequent encounter for closed fracture with routine healing (principal)
CPT/HCPCS: 99024

== ENCOUNTER 2023-12-26 09:42 | Outpatient (REF) | payer OTHER, SELFPAY | END 2023-12-26 09:43 | disposition home or self-care (01) | LOC: HO.HOSX 09:42 | PROVIDERS: Visit Provider Physician Assistant | DX: Z13.89 Encounter for screening for other disorder (principal) ==

== ENCOUNTER 2024-01-30 13:43 | Outpatient (AMB) | payer OTHER, SELFPAY ==
--- NOTE | 2024-01-30 13:59 | A.OFFVIS_ITS ---
Intake Intake Visit Reasons: OV-Lt Ankle ORIF 09/23/23 NE Intake Note: Winter a 43 year old female presents today for a follow up of left ankle s/p ORIF on 09/23/23 NE. Xrays updated. Patient reports having a slow recovery. She has been attending PT twice a week and continues to wear boot as instructed. She has concern of a lump under foot. Allergies No Known Allergies Allergy (Verified 01/30/24 14:02) HPI OV-Lt Ankle ORIF 09/23/23 NE HPI Details 43-year-old female who returns to the [facility] today for a follow-up of left ankle ORIF, 09/23/[address] Chau. She continues to have pain and has been using her boot as she is unable to fully weight bear on her foot. She also c/o a lump under her foot. She has been attending physical therapy for her ankle as instructed. [facility] Medical History (Updated 10/12/23 @ 14:37 by Leanne Corado PA-C) Annual physical exam Normal Pap smear Surgical History H/O bilateral breast reduction surgery Family History Father Hypertension Diabetes Mental health disorder Substance use disorder Mother Hypertension Mental health disorder Maternal Grandmother Breast cancer Paternal Grandmother Colon cancer Social History Household Members Other:: 1/2 PPD, 15 yr disable, daughter, 19 yr son Housing: Apartment Unable to assess alcohol history related to: Unable to respond Alcohol intake: unknown Comment: burning Patient Tobacco Use Status: Current everyday Tobacco user Tobacco use type: Cigarette Cigarettes Per Day: 10 e-Cigarette/Vaping Use: Never Used Current occupational status: unemployed Cognitive needs: No Hearing needs: No Vision needs: Yes Review of Systems Const All systems reviewed & are unremarkable except as noted in HPI and below Physical Exam Extrem Other: Left ankle: Incision well healed. No erythema or swelling. She has mild tenderness over the soft tissues at the lateral aspect of ankle. She can initiate inversion and eversion. EHL is intact. NVI. Results Reviewed Results Reviewed: Xrays were obtained in the office today and personally reviewed by of the left ankle show intact orthopedic hardware with ankle mortise intact. Assessment & Plan Assessment & Plan (1) Fracture of distal end of left tibia: Comment: 1. Multiple Fractures of the distal tibia as described. There is widening the medial mortise here. 2. Also some mild irregularity in the posterior aspect of the tibia the tibiotalar articulation could indicate fracture here. Code(s): S82.302A - Unspecified fracture of lower end of left tibia, initial encounter for closed fracture Qualifiers: Encounter type: subsequent encounter Fracture healing: with routine healing Fracture morphology: unspecified fracture morphology Fracture type: closed Qualified Code(s): S82.302D - Unspecified fracture of lower end of left tibia, subsequent encounter for closed fracture with routine healing Plan I stressed the importance of discontinuing the boot as it has been limiting her progress. I also referred her to pain management to evaluate her chronic regional pain syndrome which has been limiting her progress due to pain and hypersensitivity. She will continue working with physical therapy for strengthening and she will discontinue the use of her boot and transition to a lace up ankle brace. She will see me back in 6-8 weeks, sooner if needed. Orders: Orders XR ankle LT min 3V 12/26/23 M25.572 - Pain in left ankle and joints of left foot XR ankle LT min 3V 01/30/24 M25.572 - Pain in left ankle and joints of left foot Referrals Pain Management Referral S82.302A - Unspecified fracture of lower end of left tibia, initial encounter for closed fracture Patient Instructions: Scribed for Leanne Corado PA-C, by Hakan Lawson senior medical director, on 01/30/2024 at 1:30 PM EST. Leanne Horton PA-C, have personally reviewed and agree with the information entered by the scribe. Coding Level of Care Code Est Pt Level 3 (13687) Diagnoses Closed fracture of distal end of left tibia with routine healing, unspecified fracture morphology, subsequent encounter S82.302D Encounter type: subsequent encounter Fracture healing: with routine healing Fracture morphology: unspecified fracture morphology Fracture type: closed
== END 2024-01-30 14:27 | disposition home or self-care (01) ==
PROVIDERS: PCP Internal Medicine; Visit Provider Physician Assistant
DX: S82.302D Unspecified fracture of lower end of left tibia, subsequent encounter for closed fracture with routine healing (principal)
CPT/HCPCS: 99213

== ENCOUNTER 2024-01-30 17:18 | Outpatient (REF) | payer OTHER, SELFPAY ==
--- NOTE | ~2024-01-30 | XR_ITS ---
EXAMINATION: XR ANKLE, LEFT CLINICAL INFORMATION: Pain. COMPARISON: Prior radiographs, most recently 11/11/2023. TECHNIQUE: AP, lateral, and mortise views of the left ankle. FINDINGS: There is mild bony demineralization. There is stable mild displacement of a comminuted oblique fracture of the distal left fibula. An intact orthopedic plate and fixator screws are applied to the distal left fibula, without failure or loosening. No joint effusion is seen. Boehler's angle is normal. There is a trace posterior calcaneal spur. There is no focal soft tissue swelling, gas or foreign body. XR/XR ankle LT min 3V IMPRESSION: There is stable alignment of distal left fibular fracture fragments, without hardware failure or loosening. No significant new callus formation is noted.
== END 2024-01-30 17:19 | disposition home or self-care (01) ==
LOC: HO.HOSX 17:18
PROVIDERS: Visit Provider Physician Assistant
DX: S82.302D Unspecified fracture of lower end of left tibia, subsequent encounter for closed fracture with routine healing (principal); M25.572 Pain in left ankle and joints of left foot; X58.XXXD Exposure to other specified factors, subsequent encounter; Z98.890 Other specified postprocedural states
CPT/HCPCS: 73610; 99212

== ENCOUNTER 2024-03-21 12:37 | Outpatient (AMB) | payer OTHER, SELFPAY ==
--- NOTE | 2024-03-21 12:40 | MHC.OFFVIS ---
Intake Visit Reasons: OV-Lt Ankle ORIF 09/23/23 NE Intake Note: Winter a 43 year old female presents today for a follow up of left ankle s/p ORIF on 09/23/23 NE. Patient reports she is doing well. She informed me that the physical therapist Alma told her that she has to see Dr. Chau to see why she isn't able to flex her foot up and be completely flat when planting her foot down. Patient came with a cane today but she reveals that she only uses it for support when running errands but at home she doesn't use it. Allergies No Known Allergies Allergy (Verified 03/21/24 12:43) HPI HPI OV-Lt Ankle ORIF 09/23/23 NE: Details: 43-year-old female returns to the office today status post left ankle ORIF Dr. Chau on September of 2023. She continues to work with physical therapy. She has very minimal discomfort with activities in the left ankle. She does continue to have some limitations with range of motion but states it is not limiting her function. [facility] Medical History (Updated 10/12/23 @ 14:37 by Leanne Corado PA-C) Annual physical exam Normal Pap smear Surgical History H/O bilateral breast reduction surgery Family History Father Hypertension Diabetes Mental health disorder Substance use disorder Mother Hypertension Mental health disorder Maternal Grandmother Breast cancer Paternal Grandmother Colon cancer Social History Household Members Other:: 1/2 PPD, 15 yr disable, daughter, 19 yr son Housing: Apartment Unable to assess alcohol history related to: Unable to respond Alcohol intake: unknown Comment: burning Patient Tobacco Use Status: Current everyday Tobacco user Tobacco use type: Cigarette Cigarettes Per Day: 10 e-Cigarette/Vaping Use: Never Used Current occupational status: unemployed Cognitive needs: No Hearing needs: No Vision needs: Yes Review of Systems Const All systems reviewed & are unremarkable except as noted in HPI and below Physical Exam Const General: cooperative and no acute distress Orientation/consciousness: patient oriented x3 Resp Effort & Inspection: normal respiratory effort and able to speak in complete sentences Cardio Peripheral pulses: Peripheral pulses 2+ throughout Neuro General: patient oriented x3 Extrem Other: Left ankle: Incision well healed. No erythema or swelling. No pain mild tenderness over the soft tissues at the lateral aspect of ankle. She can initiate inversion and eversion. EHL is intact. NVI. Assessment & Plan Assessment & Plan (1) Fracture of distal end of left tibia: Comment: 1. Multiple Fractures of the distal tibia as described. There is widening the medial mortise here. 2. Also some mild irregularity in the posterior aspect of the tibia the tibiotalar articulation could indicate fracture here. Code(s): S82.302A - Unspecified fracture of lower end of left tibia, initial encounter for closed fracture Category: Medical Qualifiers: Encounter type: subsequent encounter Fracture type: closed Fracture morphology: unspecified fracture morphology Fracture healing: with routine healing Qualified Code(s): S82.302D - Unspecified fracture of lower end of left tibia, subsequent encounter for closed fracture with routine healing Plan She will continue to work with physical therapy to regain her strength and work on her gait pattern she will increase activities as tolerated and if there is any questions or concerns she will contact our office otherwise follow up as needed. Coding Level of Care Code Est Pt Level 3 (29832) Diagnoses Closed fracture of distal end of left tibia with routine healing, unspecified fracture morphology, subsequent encounter S82.302D Encounter type: subsequent encounter Fracture type: closed Fracture morphology: unspecified fracture morphology Fracture healing: with routine healing
== END 2024-03-21 13:13 | disposition home or self-care (01) ==
PROVIDERS: PCP Internal Medicine; Visit Provider Physician Assistant
DX: S82.302D Unspecified fracture of lower end of left tibia, subsequent encounter for closed fracture with routine healing (principal)
CPT/HCPCS: 99213

== ENCOUNTER → 2024-03-21 12:37 | Outpatient (BNVA) | payer OTHER, SELFPAY | PROVIDERS: PCP Internal Medicine; Visit Provider Physician Assistant | DX: S82.302D Unspecified fracture of lower end of left tibia, subsequent encounter for closed fracture with routine healing (principal); X58.XXXD Exposure to other specified factors, subsequent encounter | CPT/HCPCS: 99212 ==

== ENCOUNTER 2024-05-31 09:00 | Outpatient (RCR) | payer MEDICAID, OTHER, SELFPAY ==
--- NOTE | 2023-11-23 13:48 | MHC.PT.EP ---
[facility] [place] Office [place] Office [place] Office [address] Hortensia Hopkins [address] [phone] F: [phone] F: [phone] F: [phone] F: [phone] Physical Therapy Plan of Care Date of Evaluation: 11/23/23 Date of Surgery: 09/23/2023 Diagnosis: referral from ortho: fx of lower end of L tibia Assessment: Patient is a 43 year old female presenting to PT s/p L fibula ORIF on 09/23/2023. She presents today with impairments in pain, ankle ROM, ankle strength, LLE strength, gait mechanics, balance. 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 Pt expresses long term care administrator goal of walking, and is motivated to work towards this in PT. Clinical presentation today is most consistent with signs and sx associated with s/p L fibula ORIF 09/23/2023 and pt will benefit from skilled PT 2 week x 10 weeks to address the following problems and impairments noted upon evaluation: pain, ankle ROM, ankle strength, LLE strength, gait mechanics, balance. These problems limit the patient with the following functional activities: ADLs, work, ambulating, stair negotiation. The prescribed treatment plan of care is medically necessary. Co-morbidities of n/a were identified and taken into considerations of plan of care. Pt was educated on HEP, role of PT, prognosis, POC. Frequency and Duration: The patient will be seen 2 x week x 10 weeks Short Term Goals: Pt will demonstrate R DF ROM to neutral in 5 weeks. Pt will demonstrate 5 degrees of eversion on R in 5 weeks. Pt will demonstrate ability to bear weight through her leg in her boot household distances with axial crutches or walker in 5 weeks. Sales Teacher Goals: Pt will demonstrate R ankle MMT strength at least 4/5 in 8 weeks for improved strength for ambulating. Pt will demonstrate improved LEFI score by 9 points in 10 weeks for improved functional mobility. Pt will demonstrate ability to ambulate community distances with LRD and no boot pending MD clearance in 10 weeks for return to PLOF. Pt will demonstrate ability to negotiate stairs with min to no pain or difficulty in 10 weeks for improved access to her home. Treatment Plan: Modalities to reduce pain, spasms and effusion. Manual therapy to restore motion and function. Therapeutic exercise to improve strength and flexibility. Neuromuscular re-education for posture and balance. Therapeutic activities to return to functional activities of daily living. Electronically signed by: Alma Valentine, PT, DPT, ATC Please sign and return to therapist. Thank you for your referral.
--- NOTE | 2024-05-31 09:57 | MHC.PT.DC ---
[facility] [place] Office [place] [facility] [place] Office [address] Hortensia Hopkins [address] [phone] F: [phone] F: [phone] F: [phone] F: [phone] Physical Therapy Discharge Report Diagnosis: referral from ortho: fx of lower end of L tibia Date of Surgery: 09/23/2023 Date of Evaluation: 11/23/23 Date of Discharge: 05/31/24 Treatments to Date: 33 Cancellations to Date: 19 No Shows to Date: 5 Discharge Status: Independent with HEP Recommend MD Follow-up Discharge Summary: 05/31/2024: Pt has unfortunately made no further progress over the last month of PT. She continues to have significantly antalgic gait, inability to negotiate stairs step over step, decreased ROM, and on going pain. This is preventing her from returning to her PLOF with even basic things like walking and stairs. She has a disabled child at home and her ongoing limitations are making this challenging for her. At this point due to lack of recent progress it is no longer appropriate to continue with skilled PT so therefore she will be d/c today. She is understanding of this although she is frustrated and concerned regarding her ongoing limitations. Encouraged her to schedule an appointment with the surgeon if these limitations continue to affect her and she is understanding of this. Electronically signed by: Alma Valentine, PT, DPT, ATC Please sign and return to therapist. Thank you for your referral.
== END 2024-05-31 09:57 | disposition home or self-care (01) ==
LOC: HO.PTCHIC 09:00
PROVIDERS: PCP Internal Medicine; Visit Provider Physician Assistant
DX: S82.302D Unspecified fracture of lower end of left tibia, subsequent encounter for closed fracture with routine healing (principal)
CPT/HCPCS: 97110; 97112; 97116; 97140; 97161; 97164; 97530

== ENCOUNTER 2024-12-25 08:54 | Outpatient (AMB) | payer OTHER, SELFPAY ==
--- NOTE | 2024-12-25 09:34 | MHC.OFFWIV ---
Intake Vital Signs 12/25/24 09:35 Height 5 ft 5 in Weight 225 lb BMI 37.4 BP 124/80 Blood Pressure Location Lt brachial Position Sitting Pulse 81 Pulse Source Pulse Oximeter Temp 97.6 F Temp Source Oral Pulse Oximetry (%) 97 Oxygen Delivery Method Room Air Intake Visit Reasons: EP ? ear infection, headache, sinus pressure Intake Note: Patient here for bilat ear pain, headaches, sinus pressure that started yesterday. Patient Tobacco Use Status: Current everyday Tobacco user Allergies No Known Allergies Allergy (Verified 12/25/24 09:36) Do you need a note to return to daycare/school/sports/work: No HPI HPI Comments History of Present Illness Details This is a 44-year-old female with no stated past medical history presenting for evaluation of sinus pressure and left ear pain that she has had for the past 1 day. Patient denies having any fevers, chills, sore throat, nausea, vomiting or abdominal pain. She has not been taking any medication for treatment of her symptoms. [facility] Medical History (Updated 12/25/24 @ 10:11 by Mirna Rico PA-C) Annual physical exam Normal Pap smear Surgical History H/O bilateral breast reduction surgery Family History Father Hypertension Diabetes Mental health disorder Substance use disorder Mother Hypertension Mental health disorder Maternal Grandmother Breast cancer Paternal Grandmother Colon cancer Social History Household Members Other:: 1/2 PPD, 15 yr disable, daughter, 19 yr son Housing: Apartment Unable to assess alcohol history related to: Unable to respond Alcohol intake: unknown Comment: burning Patient Tobacco Use Status: Current everyday Tobacco user Tobacco use type: Cigarette Cigarettes Per Day: 10 e-Cigarette/Vaping Use: Never Used Current occupational status: unemployed Cognitive needs: No Hearing needs: No Vision needs: Yes Review of Systems Const All systems reviewed & are unremarkable except as noted in HPI and below Eyes Reports no additional complaints ENT Reports no additional complaints, Reports otalgia (left > right), Denies nasal congestion, Reports sinus pressure and Denies sore throat Card Reports no additional complaints Resp Reports no additional complaints, Denies cough and Denies wheezing GI Reports no additional complaints Reports no additional complaints Musc Reports no additional complaints Skin/Breast Reports system reviewed and no additional complaints, except as documented Neuro Reports no additional complaints Psych Reports no additional complaints Endo Reports no additional complaints Talib/Lymph Reports no additional complaints Aller/Immun Denies wheezing Physical Exam Vital Signs: Last Vital Signs Temp 97.6 F 12/25/24 09:35 Pulse 81 12/25/24 09:35 BP 124/80 12/25/24 09:35 Pulse Ox 97 12/25/24 09:35 Oxygen Delivery Method Room Air 12/25/24 09:35 BMI result Body Mass Index 37.4 Const General: cooperative, healthy appearing, comfortable, no acute distress, well developed, alert, awake and Physically active Nutritional Appearance: overweight Orientation/consciousness: patient oriented x3 Limitations: no limitations HEENT Head: Yes normal to inspection and Yes normocephalic Ears: hearing grossly normal bilaterally, external ears normal, TM's abnormal bilaterally (TMs bulging bilaterally without erythema) and EAC's normal General nose exam: Normal external nose present Face and sinus: Yes normal facial exam and Yes sinuses nontender Mouth: Normal oral and palatal mucosa present Teeth and gingiva: dentition normal Throat: Yes posterior oropharynx normal Eyes General: appearance normal, both eyes and all related structures Neck Lymphatic: no lymphadenopathy noted Resp Effort & Inspection: normal respiratory effort, able to speak in complete sentences, normal respiratory pattern, no audible wheezes, no cough, not tachypneic and no tripod positioning Auscultation: clear to auscultation bilaterally Cardio Rate: regular rate Rhythm: regular rhythm Skin General skin exam: no rashes or lesions noted Neuro General: patient oriented x3 Psych Appearance: grossly normal Mental Status: mental status grossly normal Insight: Good insight present (Psych) Judgement: Good judgement present (Psych) Assessment & Plan Assessment & Plan (1) Acute upper respiratory infection: Comment: Patient is afebrile and in no acute distress. Code(s): J06.9 - Acute upper respiratory infection, unspecified Plan: Mucinex OTC with increase clear fluids daily, Tylenol or ibuprofen as needed for discomfort. Coding Level of Care Code Est Pt Level 3 (29821) Diagnoses Acute upper respiratory infection J06.9 Time Spent (min) 20
[2024-12-25 09:35] VITALS: BP 124/80; PULSE 81; TEMP 36.4; O2SAT 97; BMI 37.4
== END 2024-12-25 10:00 | disposition home or self-care (01) ==
PROVIDERS: PCP Internal Medicine; Visit Provider Physician Assistant
DX: J06.9 Acute upper respiratory infection, unspecified (principal)

== ENCOUNTER → 2024-12-25 08:54 | Outpatient (BNVA) | payer OTHER, SELFPAY | PROVIDERS: PCP Internal Medicine | DX: J06.9 Acute upper respiratory infection, unspecified (principal) | CPT/HCPCS: 99212 ==

== ENCOUNTER 2025-02-12 12:52 | Outpatient (AMB) | payer OTHER, SELFPAY ==
--- NOTE | 2025-02-12 13:17 | AM.OFFWIN_ITS ---
Intake Vital Signs 02/12/25 13:18 Weight 225 lb BP 128/90 H Blood Pressure Location Rt brachial Position Sitting Pulse 77 Pulse Source Pulse Oximeter Temp 97.6 F Temp Source Oral Pulse Oximetry (%) 98 Oxygen Delivery Method Room Air Intake Visit Reasons: EP-ears congested, sinus Intake Note: Patient here for bilat ear pain that has been present for a couple of days. Patient Tobacco Use Status: Current everyday Tobacco user Allergies No Known Allergies Allergy (Verified 02/12/25 13:18) Do you need a note to return to daycare/school/sports/work: No HPI HPI Comments History of Present Illness Details This is a 44-year-old female with no stated past medical history presenting for evaluation of left ear pain that she has had for the past 2 days with a subtle sore throat. Patient has been taking ibuprofen and Tylenol without relief for discomfort. She denies having any fevers or chills, cough or shortness for breath. [facility] Medical History (Updated 02/12/25 @ 13:50 by Mirna Rico PA-C) Annual physical exam Normal Pap smear Surgical History H/O bilateral breast reduction surgery Family History Father Hypertension Diabetes Mental health disorder Substance use disorder Mother Hypertension Mental health disorder Maternal Grandmother Breast cancer Paternal Grandmother Colon cancer Social History Household Members Other:: 1/2 PPD, 15 yr disable, daughter, 19 yr son Housing: Apartment Unable to assess alcohol history related to: Unable to respond Alcohol intake: unknown Comment: burning Patient Tobacco Use Status: Current everyday Tobacco user Tobacco use type: Cigarette Cigarettes Per Day: 10 e-Cigarette/Vaping Use: Never Used Current occupational status: unemployed Cognitive needs: No Hearing needs: No Vision needs: Yes Review of Systems Const All systems reviewed & are unremarkable except as noted in HPI and below Reports as per HPI, Denies chills and Denies fever(s) Eyes Reports as per HPI ENT Reports otalgia (left), Reports sore throat, Denies throat swelling and Denies tongue swelling Card Reports no additional complaints Resp Reports no additional complaints GI Reports no additional complaints Reports no additional complaints Skin/Breast Reports system reviewed and no additional complaints, except as documented Neuro Reports no additional complaints Psych Reports no additional complaints Endo Reports no additional complaints Talib/Lymph Reports no additional complaints Aller/Immun Reports no additional complaints, Denies throat swelling and Denies tongue swelling Physical Exam Vital Signs: Last Vital Signs Temp 97.6 F 02/12/25 13:18 Pulse 77 02/12/25 13:18 BP 128/90 H 02/12/25 13:18 Pulse Ox 98 02/12/25 13:18 Oxygen Delivery Method Room Air 02/12/25 13:18 Const General: cooperative, healthy appearing, comfortable, no acute distress, well developed, alert, awake and Physically active Nutritional Appearance: well nourished Orientation/consciousness: patient oriented x3 Limitations: no limitations HEENT Head: Yes normal to inspection and Yes normocephalic Ears: hearing grossly normal bilaterally, external ears normal, TM's abnormal bilaterally, TM normal on the right, left TM abnormal (significant purulence not ed behind left TM with bulging TM) and EAC's normal General nose exam: Normal external nose present Face and sinus: Yes normal facial exam Mouth: Normal oral and palatal mucosa present and moist mucous membranes Teeth and gingiva: dentition normal Throat: Yes posterior oropharynx normal and Yes postnasal drainage Neuro General: patient oriented x3 Assessment & Plan Assessment & Plan (1) Otitis media of left ear: Comment: Significant otitis media which will require Augmentin therapy. Code(s): H66.92 - Otitis media, unspecified, left ear Qualifiers: Otitis media type: mucoid Chronicity: acute Qualified Code(s): H65.192 - Other acute nonsuppurative otitis media, left ear Plan: Augmentin 500 mg b.i.d. x7 days. Tylenol and ibuprofen as needed for discomfort. Medications: New amoxicillin-pot clavulanate 500-125 mg (Augmentin) 1 tab PO BID 14 tabs 0RF ibuprofen 600 mg PO Q6H PRN 20 tabs 0RF pain Coding Level of Care Code Est Pt Level 3 (83556) Diagnoses Acute mucoid otitis media of left ear H65.192 Otitis media type: mucoid Chronicity: acute Time Spent (min) 20
[2025-02-12 13:18] VITALS: BP 128/90; PULSE 77; TEMP 36.4; O2SAT 98
== END 2025-02-12 14:01 | disposition home or self-care (01) ==
PROVIDERS: PCP Internal Medicine; Visit Provider Physician Assistant
DX: H65.192 Other acute nonsuppurative otitis media, left ear (principal)

== ENCOUNTER → 2025-02-12 12:52 | Outpatient (BNVA) | payer OTHER, SELFPAY | PROVIDERS: PCP Internal Medicine; Visit Provider Physician Assistant | DX: H65.192 Other acute nonsuppurative otitis media, left ear (principal) | CPT/HCPCS: 99212 ==